=== PATIENT | female | born 1980 | race Caucasian/White ===

== ENCOUNTER → 2019-06-29 17:50 | Observation (INO) ==
[2019-06-29 12:21] LABS: Bilirubin,Urine Small (Negative); Blood,Urine Negative (Negative); Clarity,Urine Cloudy (Clear); Color,Urine Dark Yellow (Yellow); Glucose,Urine (UA) Normal (Normal); Ketones,Urine Negative (Negative); Leukocyte Esterase,Urine Trace (Negative); Nitrite,Urine Negative (Negative); PH,Urine 5.5 pH Units (5.0-8.0); Protein,Urine Trace mg/dL (Neg-Trace); Urobilinogen,Urine Normal (Normal)
[2019-06-29 12:26] LABS: Bacteria,Urine None Seen per hpf (None-Few); Hyaline Casts,Urine None Seen per lpf (None-Few); Squamous Epithelial Cell,Urine Many per lpf (None-Few)
[~2019-06-29 17:50] MED LIST: Betamethasone Acet/SodPhos 30 MG/5 ML VIAL IM SCH; Ringers Solution, Lactated 1,000 ML ONE
== END | disposition home or self-care (01) ==
LOC: 1NENULAB
PROVIDERS: ADMIT Obstetrics & Gynecology; ATTEND Obstetrics & Gynecology

== ENCOUNTER → 2019-07-04 14:10 | Observation (INO) ==
[2019-07-04 13:43] LABS: Bilirubin,Urine Negative (Negative); Blood,Urine Negative (Negative); Clarity,Urine Clear (Clear); Color,Urine Yellow (Yellow); Glucose,Urine (UA) Normal (Normal); Ketones,Urine Negative (Negative); Leukocyte Esterase,Urine Negative (Negative); Nitrite,Urine Negative (Negative); Protein,Urine Negative (Neg-Trace); Specific Gravity,Urine 1.005 (1.010-1.025); Urobilinogen,Urine Normal (Normal)
[2019-07-04 13:54] LABS: Amphetamine Screen,Urine Negative ng/mL (Cutoff=1000); Barbiturate Screen,Urine Negative ng/mL (Cutoff=200); Benzodiazepines Screen,Urine Negative ng/mL (Cutoff=200); Cannabinoid Screen,Urine Negative ng/mL (Cutoff = 50); Cocaine Screen,Urine Negative ng/mL (Cutoff= 300); Opiate Screen,Urine Negative ng/mL (Cutoff=300); Phencyclidine Screen,Urine Negative ng/mL (Cutoff=25)
== END | disposition home or self-care (01) ==
LOC: 1NENULAB
PROVIDERS: ADMIT Obstetrics & Gynecology; ATTEND Obstetrics & Gynecology

== ENCOUNTER → 2019-07-12 15:44 | Observation (INO) ==
[2019-07-12 10:43] LABS: Bilirubin,Urine Moderate (Negative); Blood,Urine Negative (Negative); Clarity,Urine Cloudy (Clear); Color,Urine Orange (Yellow); Glucose,Urine (UA) Normal (Normal); Ketones,Urine Trace mg/dL (Negative); Leukocyte Esterase,Urine Small (Negative); Nitrite,Urine Negative (Negative); Protein,Urine 30 mg/dL (Neg-Trace); Specific Gravity,Urine 1.027 (1.010-1.025); Urobilinogen,Urine Normal (Normal)
[2019-07-12 10:48] LABS: Bacteria,Urine Few per hpf (None-Few); Squamous Epithelial Cell,Urine Many per lpf (None-Few)
[2019-07-12 11:06] LABS: Hematocrit 34.2 % (35.3-44.9); Hemoglobin 11.5 g/dL (11.5-15.4); Mean Corpuscular HGB Conc 33.6 g/dL (31.6-35.5); Mean Corpuscular Hemoglobin 30.2 pg (28.0-33.3); Mean Corpuscular Volume 89.8 fL (83.0-100.0); Mean Platelet Volume 8.7 fL (9.4-12.4); Platelet Count 300 K/mcL (140-400); Red Blood Count 3.81 M/mcL (3.82-4.97); White Blood Count 7.8 K/mcL (4.3-11.1)
[2019-07-12 11:14] LABS: Mucus,Urine Few per lpf (Few)
[2019-07-12 12:44] LABS: Potassium 3.8 mEq/L (3.5-5.1)
[~2019-07-12 15:44] MED LIST changes: -Betamethasone Acet/SodPhos 30 MG/5 ML VIAL IM SCH; +D5% in Lactated Ringers 1,000 ML IVC SCH; +Ondansetron 4 MG/2 ML VIAL IVP PRN; -Ringers Solution, Lactated 1,000 ML ONE
== END | disposition home or self-care (01) ==
LOC: 1NENULAB
PROVIDERS: ADMIT Advanced Practice Midwife; ATTEND Advanced Practice Midwife

== ENCOUNTER → 2019-08-18 13:54 | Observation (INO) | END | disposition home or self-care (01) | LOC: 1NENULAB | PROVIDERS: ADMIT Advanced Practice Midwife; ATTEND Advanced Practice Midwife ==

== ENCOUNTER → 2019-08-25 15:35 | Observation (INO) | END | disposition home or self-care (01) | LOC: 1NENULAB | PROVIDERS: ADMIT Registered Nurse; ATTEND Registered Nurse ==

== ENCOUNTER 2019-08-27 04:00 | Inpatient (IN) ==
[2019-08-27] MEDS ORDERED: Famotidine 20 MG/2 ML VIAL IVP PRN (05:22)
[2019-08-27] MEDS ORDERED: Naloxone 0.4 MG/ML INJ IVP PRN (05:22)
[2019-08-27] MEDS ORDERED: miSOPROStoL 25 MCG TABLET VG PRN (05:22)
[2019-08-27] MEDS ORDERED: Metoclopramide 10 MG/2 ML VIAL IVP PRN ×2 (05:22→21:44)
[2019-08-27] MEDS ORDERED: Lidocaine 1% 20 ML MDV INFILT PRN (05:22)
[2019-08-27] MEDS ORDERED: Ringers Solution, Lactated 1,000 ML IVC SCH ×2 (05:30→21:44)
[2019-08-27 05:46] LABS: Basophils % 0.4 %; Eosinophils # 0.2 K/mcL (0.0-0.6); Hematocrit 30.4 % (35.3-44.9); Hemoglobin 9.8 g/dL (11.5-15.4); Immature Granulocytes % 0.6 % (0-4); Lymphocytes # 2.3 K/mcL (0.6-4.6); Lymphocytes % 28.7 %; Mean Corpuscular HGB Conc 32.2 g/dL (31.6-35.5); Mean Corpuscular Hemoglobin 28.8 pg (28.0-33.3); Mean Corpuscular Volume 89.4 fL (83.0-100.0); Mean Platelet Volume 8.5 fL (9.4-12.4); Monocytes # 0.7 K/mcL (0.0-1.3); Monocytes % 8.7 %; Neutrophils # 4.7 K/mcL (1.6-8.9); Platelet Count 307 K/mcL (140-400); Red Cell Distribution Width 14.8 % (11.5-14.5); Segmented Neutrophils % 59.6 %; White Blood Count 7.8 K/mcL (4.3-11.1)
[2019-08-27 05:55] LABS: Amphetamine Screen,Urine Negative ng/mL (Cutoff=1000); Barbiturate Screen,Urine Negative ng/mL (Cutoff=200); Benzodiazepines Screen,Urine Negative ng/mL (Cutoff=200); Cannabinoid Screen,Urine Negative ng/mL (Cutoff = 50); Cocaine Screen,Urine Negative ng/mL (Cutoff= 300); Opiate Screen,Urine Negative ng/mL (Cutoff=300); Phencyclidine Screen,Urine Negative ng/mL (Cutoff=25); Protein/Creatinine Ratio,Urine 0.16 mg/mg (0.00-0.20)
[2019-08-27] MEDS ORDERED: Epidural Premix (fent/bupiv) 110 ML EP SCH (15:49)
[2019-08-27] MEDS ORDERED: Epidural Premix (fent/bupiv) 110 ML EP ONE (15:49)
[2019-08-27] MEDS ORDERED: Ropivacaine/PF 0.2% 20 ML VIAL ONE (15:51)
[2019-08-27] MEDS ORDERED: *HR* FentaNYL (PF) 100 MCG/2 ML VIAL ONE (15:51)
[2019-08-27] MEDS ORDERED: Oxytocin 20 units/ LR 1000 mL 20 UNIT/1,000 ML BAG IVC SCH ×2 (16:30→21:44)
[2019-08-27] MEDS ORDERED: EPHEDrine 50 MG/ML VIAL IVP PRN ×2 (17:58→18:41)
[2019-08-27] MEDS ORDERED: *HR* Morphine Sulfate/PF 10 MG/10 ML AMPUL ONE (18:14)
[2019-08-27] MEDS ORDERED: *HR* Oxytocin 10 UNIT/ML VIAL IM ONE ×2 (18:14→19:05)
[2019-08-27] MEDS ORDERED: *HR* Phenylephrine 10 MG/ML VIAL ONE (18:17)
[2019-08-27] MEDS ORDERED: *HR* HYDROmorphone PF 0.5 MG/0.5 ML SYRINGE IVP PRN (18:23)
[2019-08-27] MEDS ORDERED: Ondansetron 4 MG/2 ML VIAL IVP ONE (18:23)
[2019-08-27] MEDS ORDERED: Ketorolac 30 MG/ML VIAL IVP ONE (18:23)
[2019-08-27] MEDS ORDERED: Acetaminophen IV 1,000 MG/100 ML INFUS..BTL IVPB ONE (18:23)
[2019-08-27] MEDS ORDERED: Acetaminophen IV 1,000 MG/100 ML INFUS..BTL ONE (18:43)
[2019-08-27] MEDS ORDERED: Ringers Solution, Lactated 1,000 ML ONE (19:05)
[2019-08-27] MEDS ORDERED: Chloroprocaine/PF 20 ML VIAL INFILT ONE (19:13)
[2019-08-27] MEDS ORDERED: Ondansetron 4 MG/2 ML VIAL IVP PRN (21:44)
[2019-08-27] MEDS ORDERED: Rho Immune Globulin 1,500 UNIT SYRINGE IM PRN (21:44)
[2019-08-27] MEDS ORDERED: Simethicone 80 MG TAB.CHEW PO PRN (21:44)
[2019-08-27] MEDS ORDERED: Sennosides 8.6 MG TABLET PO PRN (21:44)
[2019-08-27] MEDS: cephALEXin 500 MG CAPSULE PO SCH (22:13)
[2019-08-27] MEDS: *HR* OxyCODONE/APAP 5/325 TABLET PO PRN (22:13)
[2019-08-27] MEDS: metroNIDAZOLE 500 MG TABLET PO SCH (22:13)
[2019-08-28] MEDS: Ibuprofen 600 MG TABLET PO PRN ×4 (01:03→23:09)
[2019-08-28] MEDS: *HR* OxyCODONE/APAP 5/325 TABLET PO PRN ×4 (05:58→23:11)
[2019-08-28] MEDS: Prenatal Vit/FA 1 EACH TABLET PO SCH (08:02)
[2019-08-28] MEDS: cephALEXin 500 MG CAPSULE PO SCH ×3 (08:02→23:10)
[2019-08-28] MEDS: metroNIDAZOLE 500 MG TABLET PO SCH ×3 (08:02→23:10)
[2019-08-29] MEDS: *HR* OxyCODONE/APAP 5/325 TABLET PO PRN ×2 (05:26→11:04)
[2019-08-29] MEDS: Ibuprofen 600 MG TABLET PO PRN ×2 (05:26→15:07)
[2019-08-29 07:36] VITALS: BP 117/64
[2019-08-29] MEDS: Prenatal Vit/FA 1 EACH TABLET PO SCH (09:08)
[2019-08-29] MEDS: cephALEXin 500 MG CAPSULE PO SCH ×2 (09:09→15:06)
[2019-08-29] MEDS: metroNIDAZOLE 500 MG TABLET PO SCH ×2 (09:09→15:07)
[2019-08-29 09:17] LABS: Basophils % 0.2 %; Eosinophils # 0.2 K/mcL (0.0-0.6); Eosinophils % 1.6 %; Hematocrit 25.7 % (35.3-44.9); Immature Granulocytes % 0.4 % (0-4); Lymphocytes # 1.7 K/mcL (0.6-4.6); Mean Corpuscular HGB Conc 31.5 g/dL (31.6-35.5); Mean Corpuscular Hemoglobin 28.7 pg (28.0-33.3); Mean Corpuscular Volume 91.1 fL (83.0-100.0); Mean Platelet Volume 8.5 fL (9.4-12.4); Monocytes # 0.7 K/mcL (0.0-1.3); Monocytes % 6.1 %; Neutrophils # 8.8 K/mcL (1.6-8.9); Platelet Count 248 K/mcL (140-400); Red Blood Count 2.82 M/mcL (3.82-4.97); Red Cell Distribution Width 15.2 % (11.5-14.5); Segmented Neutrophils % 76.7 %; White Blood Count 11.4 K/mcL (4.3-11.1)
[2019-08-29 09:18] LABS: Hemoglobin 8.1 g/dL (11.5-15.4)
== END 2019-08-29 15:33 | disposition home or self-care (01) | DRG 784 ==
LOC: 1NENULAB 04:16 → 1NENUOBS 21:43
PROVIDERS: ADMIT Student in an Organized Health Care Education/Training Program; ATTEND Student in an Organized Health Care Education/Training Program